=== PATIENT | male | born 1985 | race Hispanic/Latino ===

== ENCOUNTER 2019-11-27 16:27 | Emergency (ER) | payer OTHER ==
[2019-11-28 10:11] LABS: SARS-CoV-2 MS2 Positive; SARS-CoV-2 N Gene Negative; SARS-CoV-2 S Gene Negative; SARS-CoV-2 orf1ab Negative
== END 2019-11-27 17:18 | disposition home or self-care (01) ==
LOC: ERS 16:27
DX: R09.81 Nasal congestion (principal); Z20.828 Contact with and (suspected) exposure to other viral communicable diseases
CPT/HCPCS: 87635; 99283; U0003

== ENCOUNTER 2020-08-25 14:31 | Emergency (ER) | payer SELFPAY ==
[2020-08-25 23:49] LABS: SARS-CoV-2 PCR by NAA Not Detected (NotDetected)
== END 2020-08-25 15:11 | disposition home or self-care (01) ==
LOC: ERS 14:31
DX: R50.9 Fever, unspecified (principal); R05 Cough; Z20.822 Contact with and (suspected) exposure to COVID-19
CPT/HCPCS: 87635; 99283; U0003; U0005

== ENCOUNTER 2020-11-12 12:38 | Emergency (ER) | payer SELFPAY ==
[2020-11-12 18:03] LABS: SARS-CoV-2 PCR by NAA Not Detected (NotDetected)
== END 2020-11-12 13:24 | disposition home or self-care (01) ==
LOC: ERS 12:38
DX: M79.10 Myalgia, unspecified site (principal); Z20.822 Contact with and (suspected) exposure to COVID-19
CPT/HCPCS: 87635; 99283; U0003; U0005